=== PATIENT | male | born 1950 | race African-American/Black ===

== ENCOUNTER 2018-05-30 20:29 | Inpatient (IN) | payer MEDICAID ==
[~2018-05-30] VITALS: Ht 188 cm; Wt 85.7 kg
[2018-05-30] MEDS ORDERED: SODIUM CHLORIDE 0.9% 1,000 ML IV ONE (20:40)
[2018-05-30 20:57] LABS: BASOPHILS % 0.6 % (0.0-2.0); EOSINOPHILS % 0.8 % (0.0-5.0); HEMOGLOBIN. 13.2 g/dL (14.0-18.0); LYMPHOCYTES % 18.2 % (20.0-50.0); MEAN CORPUSCULAR HEMOGLOBIN 28.9 pg (28.0-32.0); MEAN CORPUSCULAR VOLUME 85.2 fL (80.0-94.0); MEAN PLATELET VOLUME 7.7 fl (7.4-10.4); MONOCYTES % 4.2 % (2.0-8.0); NEUTROPHILS % 76.2 % (40.0-76.0); PLATELET 298 x1000/uL (130-400); RED BLOOD CELL COUNT 4.58 mill/uL (4.7-6.1); RED CELL DISTRIBUTION WIDTH 14.7 % (11.6-14.6)
[2018-05-30 21:03] LABS: CHLORIDE 103 mEq/L (98-107)
[2018-05-30 21:07] LABS: ETHANOL BLOOD < 10 mg/dL
[2018-05-30 21:10] LABS: LDL CHOLESTEROL 149 mg/dL (5-100)
[2018-05-30] MEDS ORDERED: IOHEXOL-350 100 ML BOTTLE ONE (21:29)
[2018-05-30 22:03] LABS: CLARITY URINE CLEAR (CLEAR); COLOR URINE YELLOW (YELLOW); KETONES URINE NEGATIVE (NEGATIVE); LEUKOCYTE ESTERASE URINE NEGATIVE (NEGATIVE); NITRITE URINE NEGATIVE (NEGATIVE); OCCULT BLOOD URINE NEGATIVE (NEGATIVE); PROTEIN URINE NEGATIVE (NEGATIVE); SPECIFIC GRAVITY URINE 1.031 (1.005-1.030); UROBILINOGEN URINE 0.2 E.U./dL (0.2-1.0)
[2018-05-30 22:19] LABS: *AMPHETAMINES SCREEN URINE NEGATIVE (NEGATIVE); *BARBITURATES SCREEN URINE NEGATIVE (NEGATIVE); *BENZODIAZEPINES SCREEN URINE NEGATIVE (NEGATIVE); *COCAINE SCREEN URINE NEGATIVE (NEGATIVE); METHADONE URINE SCREEN NEGATIVE (NEGATIVE)
[2018-05-30 22:20] LABS: CANNABINOID URINE SCREEN PRESUMTIVE POSITIVE (NEGATIVE); OPIATES URINE SCREEN PRESUMTIVE POSITIVE (NEGATIVE); PHENCYCLIDINE URINE SCREEN NEGATIVE (NEGATIVE)
[2018-05-31] MEDS ORDERED: IPRATROPIUM/ALBUTEROL 0.5-3(2.5)MG/3ML NEB INH PRN (00:30)
[2018-05-31] MEDS ORDERED: DOCUSATE SODIUM 100MG CAPSULE PO PRN (00:30)
[2018-05-31] MEDS ORDERED: ACETAMINOPHEN 325MG TABLET PO PRN (00:30)
[2018-05-31] MEDS ORDERED: HYDROCODONE/ACETAMINOPHEN 5/325MG TABLET PO PRN (00:30)
[2018-05-31] MEDS ORDERED: ONDANSETRON HCL 4MG/2ML INJ IV PRN (00:30)
[2018-05-31] MEDS ORDERED: CLONIDINE 0.1MG TABLET PO PRN (00:30)
[2018-05-31] MEDS ORDERED: GUAIFENESIN 200MG/10ML SUGAR FREE UDC PO PRN (00:30)
[2018-05-31] MEDS ORDERED: MAGNESIUM/ALUMINUM HYDROXIDE/SIMETHICONE 30ML UDC PO PRN (00:30)
[2018-05-31 00:56] LABS: CHLORIDE 104 mEq/L (98-107)
[2018-05-31 03:19] VITALS: BP 156/88
[2018-05-31 03:20] VITALS: BP 156/88
[2018-05-31 04:00] VITALS: BP 148/85
[2018-05-31 08:00] VITALS: BP_SYST 118; BP_SYST 155; BP_DIAS 81; BP_DIAS 86
[2018-05-31] MEDS: ASPIRIN 81MG EC TABLET PO SCH (08:08)
[2018-05-31] MEDS: ENOXAPARIN 40MG/0.4ML SYR SUBCUT SCH (08:09)
[2018-05-31 10:01] LABS: BASOPHILS % 0.8 % (0.0-2.0); EOSINOPHILS % 0.9 % (0.0-5.0); HEMATOCRIT. 36.3 % (42.0-52.0); HEMOGLOBIN. 12.3 g/dL (14.0-18.0); LYMPHOCYTES % 17.4 % (20.0-50.0); MEAN CORPUSCULAR VOLUME 85.3 fL (80.0-94.0); MEAN PLATELET VOLUME 7.4 fl (7.4-10.4); MONOCYTES % 4.2 % (2.0-8.0); NEUTROPHILS % 76.7 % (40.0-76.0); PLATELET 281 x1000/uL (130-400); RED BLOOD CELL COUNT 4.25 mill/uL (4.7-6.1); RED CELL DISTRIBUTION WIDTH 14.3 % (11.6-14.6)
[2018-05-31] MEDS: CLOPIDOGREL 75MG TABLET PO SCH (10:07)
[2018-05-31 10:24] LABS: CREATINE KINASE MB FRACTION 1.5 ng/mL (0.5-3.6)
[2018-05-31 10:31] LABS: FOLIC ACID (FOLATE) SERUM >20 ng/mL ng/mL (>5.38)
[2018-05-31 10:42] LABS: VITAMIN B12 SERUM 668 pg/mL (211-911)
[2018-05-31 11:13] LABS: T4 FREE 0.98 ng/dL (0.76-1.46)
[2018-05-31 16:23] LABS: CREATINE KINASE MB FRACTION 1.1 ng/mL (0.5-3.6)
[2018-05-31 16:40] LABS: TOTAL IRON BINDING CAPACITY 283 ug/dL (250-450)
[2018-05-31 20:00] VITALS: BP 174/87
[2018-05-31] MEDS ORDERED: LISI-604 MT (22:57)
[2018-06-01] VITALS: BP 141/93
[2018-06-01 04:00] VITALS: BP 143/92
[2018-06-01 08:00] VITALS: BP 145/98
[2018-06-01] MEDS: CLOPIDOGREL 75MG TABLET PO SCH (08:13)
[2018-06-01] MEDS: ASPIRIN 81MG EC TABLET PO SCH (08:13)
[2018-06-01] MEDS: ENOXAPARIN 40MG/0.4ML SYR SUBCUT SCH (08:13)
[2018-06-01] MEDS ORDERED: LISINOPRIL 20MG TABLET PO SCH (09:00)
[2018-06-01] MEDS ORDERED: NICOTINE 14MG PATCH TD SCH (11:30)
[2018-06-01 12:00] VITALS: BP 136/84
[2018-06-01 16:00] VITALS: BP 127/79
[2018-06-01 16:20] VITALS: BP 127/79
[2018-06-01] MEDS ORDERED: ATORVASTATIN CALCIUM 20MG TABLET PO SCH (21:00)
== END 2018-06-01 19:15 | disposition home or self-care (01) | DRG 47 ==
LOC: ER 20:29 → 8WST 23:44 → EDBEDREQ 23:49 → EDBEDREQSVC 23:49 → EDBEDREQTM 23:49 → ENRESERV 05-31 01:57
PROVIDERS: ADMIT Internal Medicine; ATTEND Internal Medicine
DX: G45.9 Transient cerebral ischemic attack, unspecified (principal); D64.9 Anemia, unspecified; E78.5 Hyperlipidemia, unspecified; G51.0 Bell's palsy; R47.1 Dysarthria and anarthria; D72.828 Other elevated white blood cell count; R73.9 Hyperglycemia, unspecified; R26.9 Unspecified abnormalities of gait and mobility; I10 Essential (primary) hypertension; Z88.0 Allergy status to penicillin; Z79.899 Other long term (current) drug therapy; Z86.73 Personal history of transient ischemic attack (TIA), and cerebral infarction without residual deficits; Z87.891 Personal history of nicotine dependence
CPT/HCPCS: 36415; 70496; 70498; 70551; 71045; 80048; 80061; 80305; 80320; 82550; 82553; 82607; 82728; 82746; 83036; 83540; 83550; 83721; 83735; 84439; 84443; 84481; 84484; 92523; 93005; 93306; 96360; 97116; 97162; 97166; 99285; J1650; J7030; Q9967; G0480